=== PATIENT | female | born 1975 | race Caucasian/White ===

== ENCOUNTER → 2016-07-17 | Outpatient (CLI) | payer OTHER ==
[~2016-07-17] MED LIST: BACTRIM DS 8001 TA1 PO; CEPHALEXIN500 M1 PO; HYDROCHLOROTHIA25 M1 PO
== END | disposition home or self-care (01) ==
LOC: US 09:25
DX: Z12.31 Encounter for screening mammogram for malignant neoplasm of breast (principal); N95.1 Menopausal and female climacteric states

== ENCOUNTER 2020-09-06 10:07 | Emergency (ER) | payer OTHER ==
[~2020-09-06] VITALS: Wt 86.2 kg
[2020-09-06] MEDS ORDERED: NAPROXEN250 MG PO (11:05)
[2020-09-06] MEDS ORDERED: TYLENOL325 M1 PO (11:05)
[2020-09-06] MEDS ORDERED: CYCLOBENZAPRINE10 MG PO (11:05)
== END 2020-09-06 11:10 | disposition home or self-care (01) ==
LOC: ED 10:07
DX: M54.6 Pain in thoracic spine (principal); I10 Essential (primary) hypertension; Z79.899 Other long term (current) drug therapy; Z98.890 Other specified postprocedural states; V23.4XXA Motorcycle driver injured in collision with car, pick-up truck or van in traffic accident, initial encounter; Y93.89 Activity, other specified; Y92.89 Other specified places as the place of occurrence of the external cause; Y99.8 Other external cause status

== ENCOUNTER 2023-01-28 11:58 | Emergency (ER) | payer OTHER ==
[~2023-01-28] VITALS: Ht 160 cm; Wt 77.1 kg
[~2023-01-28 11:58] MED LIST changes: +CYCLOBENZAPRINE10 MG PO; +NAPROXEN250 MG PO; +TYLENOL325 M1 PO
[2023-01-28] MEDS ORDERED: KEPPRA XR500 MG PO (12:16)
[2023-01-28] MEDS ORDERED: METFORMIN HYDR750 MG PO (12:17)
[2023-01-28] MEDS ORDERED: PAXIL10 MG PO (12:17)
[2023-01-28] MEDS ORDERED: DITROPAN XL5 MG PO (12:18)
== END 2023-01-28 15:27 | disposition home or self-care (01) ==
LOC: ED 11:58
DX: S60.222A Contusion of left hand, initial encounter (principal); I10 Essential (primary) hypertension; Z98.890 Other specified postprocedural states; V89.9XXA Person injured in unspecified vehicle accident, initial encounter; Y93.89 Activity, other specified; Y92.89 Other specified places as the place of occurrence of the external cause; Y99.8 Other external cause status

== ENCOUNTER 2023-07-20 17:45 | Emergency (ER) | payer OTHER ==
[~2023-07-20] VITALS: Ht 157.4 cm; Wt 81.6 kg
[~2023-07-20 17:45] MED LIST changes: +DITROPAN XL5 MG PO; +KEPPRA XR500 MG PO; +METFORMIN HYDR750 MG PO; +PAXIL10 MG PO
[2023-07-20] MEDS ORDERED: Lopressor25 MG PO (19:25)
== END 2023-07-20 21:25 | disposition home or self-care (01) ==
LOC: ED 17:45
DX: M54.50 Low back pain, unspecified (principal); R51.9 Headache, unspecified; I10 Essential (primary) hypertension; Z98.890 Other specified postprocedural states; V89.2XXA Person injured in unspecified motor-vehicle accident, traffic, initial encounter; Y93.89 Activity, other specified; Y92.410 Unspecified street and highway as the place of occurrence of the external cause; Y99.8 Other external cause status